=== PATIENT | female | born 2000 | race Caucasian/White ===

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

== ENCOUNTER 2021-06-06 14:49 | Emergency (ER) | payer OTHER, MEDICAID, SELFPAY ==
--- NOTE | ~2021-06-06 | XR_ITS ---
XR ankle RT min 3V DATE: 06/06/2021 15:33 INDICATION: Lawnmower accident TECHNIQUE: 4 views COMPARISON: None FINDINGS: No fracture or dislocation of the ankle or disruption of the ankle mortise is detected. No periosteal reaction or bone destruction. IMPRESSION: Negative Reviewed, dictated and finalized at location A. IMPRESSION: Negative
--- NOTE | ~2021-06-06 | XR_ITS ---
EXAMINATION: XR tibia fibula RT 2V DATE: 06/06/2021 15:33 INDICATION: Pain at the right tibia/fibula after lawnmower accident TECHNIQUE: AP and lateral views of the right lower leg were obtained. COMPARISON: None. FINDINGS: Arcuate sign with a minimally displaced transverse fracture across the cephalad tip of the proximal r ight fibula tip likely resulting from an avulsion fracture of the arcuate ligament complex. Bone alig nment is otherwise normal. No other fractures identified. Joint spaces appear normal. No evident righ t knee or ankle joint effusion. IMPRESSION: 1. Small minimally displaced likely arcuate ligament complex avulsion fracture fragment across the ce phalad tip of the proximal right fibula. This injury pattern can have a high association with additio nal occult internal derangement including cruciate ligament and meniscal tears although there does no t appear to be a significant right knee joint effusion to further elevate suspicion. Correlate with p hysical exam and if there is clinical concern for internal derangement would recommend MRI for furthe r evaluation. Reviewed, dictated and finalized at location A. IMPRESSION: 1. Small minimally displaced likely arcuate ligament complex avulsion fracture fragment across the cephalad tip of the proximal right fibula. This injury wander lorena can have a high association with additional occult internal derangement inc luding cruciate ligament and meniscal tears although there does not appear to b e a significant right knee joint effusion to further elevate suspicion. Correla te with physical exam and if there is clinical concern for internal derangement would recommend MRI for further evaluation.
--- NOTE | ~2021-06-06 | XR_ITS ---
XR wrist RT min 3V DATE: 06/06/2021 15:33 INDICATION: Fall. Right wrist injury, pain TECHNIQUE: 4 views COMPARISON: None FINDINGS: There is a nondisplaced transverse fracture of the waist of the navicular bone. This places the proximal aspect of the navicular bone at the risk of avascular necrosis. No other fracture or dislocation. No periosteal reaction or bone destruction. IMPRESSION: Nondisplaced transverse fracture of the waist of the navicular bone Reviewed, dictated and finalized at location A.
[2021-06-06 15:07] VITALS: BP 127/73; PULSE 85; RESP 18; TEMP 36.4; O2SAT 100
--- NOTE | 2021-06-06 16:05 | ED.LOWEXIN ---
HPI - Extremity Injury (Lower) General Chief Complaint: Extremity Injury, Lower Stated Complaint: leg injury Time Seen by Provider: 06/06/21 15:34 History of Present Illness HPI Narrative: 20-year-old female presents to the emergency room for evaluation of injuries to the right ankle, right knee, right wrist following lawnmower accident. Patient states that she was standing in a stand-up lawnmower when she lost control, fell off the lawn more, and a little more ran over her leg . Patient attempted to catch her self with her right wrist causing a FOOSH injury. Patient states that she is not ambulatory following the injury. Related Data Home Medications Medication Instructions Recorded Confirmed PNV cmb#95-ferrous fumarate-FA 1 tablet PO DAILY 10/30/20 12/17/20 [] ergocalciferol (vitamin D2) 50,000 unit PO 2XW 10/30/20 12/17/20 [Vitamin D2] ferrous sulfate 325 mg PO DAILY 10/30/20 12/17/20 sertraline 50 mg PO DAILY 12/07/20 12/17/20 Allergies Allergy/AdvReac Type Severity Reaction Status Date / Time No Known Allergies Allergy Unknown Verified 06/06/21 16:40 Review of Systems Review of Systems: CONSTITUTIONAL: Denies fever, chills, or sweats. EYES: Denies visual changes, redness, or discharge. ENT: Denies rhinorrhea, congestion, sore throat, or otalgia. CARDIOVASCULAR: Denies chest pain, palpitations, or edema. RESPIRATORY: Denies cough or dyspnea. GASTROINTESTINAL: Denies abdominal pain, nausea, vomiting, or diarrhea. GENITOURINARY: Denies dysuria or hematuria. SKIN: Denies rash or itching. MUSCULOSKELETAL: Reports right wrist pain, right ankle pain, right knee pain NEUROLOGIC: Denies headache, numbness, dizziness, or weakness. PSYCHIATRIC: Denies anxiety or depression. [facility] Past Medical History Medical History Decreased movement Depression False labor Intrauterine Obesity (BMI 30-39.9) Surgical History Surgical History No significant past surgical history Family History Family History Other No pertinent family history Social History Social History Smoking status: Never smoker Second hand tobacco smoke exposure: Yes Alcohol intake: current Alcohol use details: intermittent Substance use: former Substance use type: marijuana Spiritual care concerns: No Exam Narrative: GENERAL: Well-appearing, well-nourished, and in no acute distress. HEAD: Normocephalic, atraumatic. EYES: PERRLA and EOMI. NECK: Supple. No adenopathy or masses. No carotid bruits or JVD CHEST: Clear to auscultation. No respiratory distress. No wheezes rales or rhonchi HEART: Regular rate and rhythm. No murmur heard. Normal peripheral pulses. ABDOMEN: Soft, nontender, nondistended, normal active bowel sounds. EXTREMITIES: Right wrist: Snuffbox tenderness, soft tissue swelling over the radiocarpal joint, pain with range of motion, no ecchymosis, neurovascular is intact distally. Right knee: Ecchymosis and tenderness to the popliteal fossa, no joint laxity noted. Pain with varus and valgus movements. Right lower extremity: Tenderness and ecchymosis anterior moore; right ankle: Tenderness and soft tissue swelling to the lateral malleolus, no joint laxity, no bony abnormality, there is intact distal SKIN: Warm, dry, no rash. NEURO: No focal deficits. Alert and oriented x3. PSYCH: Normal mood and affect. Course Vital Signs Vital signs: Vital Signs Temperature 36.4 C 06/06/21 15:07 Pulse Rate 85 06/06/21 15:07 Respiratory Rate 18 06/06/21 15:07 Blood Pressure 127/73 06/06/21 15:07 Pulse Oximetry 100 06/06/21 15:07 Temperature 36.4 C 06/06/21 15:07 Pulse Rate 85 06/06/21 15:07 Respiratory Rate 18 06/06/21 15:07 Blood Pressure 127/73 04
== END 2021-06-06 17:06 | disposition home or self-care (01) ==
PROVIDERS: Emergency Provider Nurse Practitioner Family; PCP Physician Assistant
DX: S62.024A Nondisplaced fracture of middle third of navicular [scaphoid] bone of right wrist, initial encounter for closed fracture (principal); S82.831A Other fracture of upper and lower end of right fibula, initial encounter for closed fracture; S90.01XA Contusion of right ankle, initial encounter; F32.A Depression, unspecified; E66.9 Obesity, unspecified; Z77.22 Contact with and (suspected) exposure to environmental tobacco smoke (acute) (chronic); W28.XXXA Contact with powered lawn mower, initial encounter
CPT/HCPCS: 29125; 73110; 73590; 73610; 99284

== ENCOUNTER 2022-11-26 13:11 | Outpatient (CLI) | payer BC, OTHER, SELFPAY ==
--- NOTE | ~2022-11-26 | XR_ITS ---
EXAMINATION: XR lumbar spine 2-3V DATE: 11/26/2022 13:37 INDICATION: Right-sided low back pain TECHNIQUE: AP lateral views of the lumbar spine were obtained. COMPARISON: None. FINDINGS: Bone alignment is normal. There is no fracture. The vertebral body heights and intervertebr al disc spaces are normal. Left pelvic calcifications likely reflect phleboliths. IMPRESSION: 1. No acute osseous abnormality. Reviewed, dictated and finalized at location F.
== END 2022-11-26 13:12 | disposition home or self-care (01) ==
DX: M54.41 Lumbago with sciatica, right side (principal)
CPT/HCPCS: 72100

== ENCOUNTER 2023-07-10 09:59 | Emergency (ER) | payer BC, OTHER, SELFPAY ==
--- NOTE | 2023-07-10 12:30 | ED.EYEPROB ---
HPI - Eye Problem General Chief complaint: Eye Problems Stated complaint: r/o pink eye Time Seen by Provider: 07/10/23 11:49 Source: patient Mode of arrival: ambulatory Limitations: no limitations History of Present Illness HPI Narrative: Patient presents with concern for pink eye. Multiple family members have allergies but she denies any significant personal history. Denies sneezing. Recently had an upper respiratory infection with congestion. Denies blurred or double vision. Noticed one eye was red/injected on and both today. Sent a photo to PCP Dr Marlon Rajput's office in [place]. She was later notified they didn't receive it and when she re-sent it 5 minutes later, was informed the office was closed. Has an intermittent foreign body sensation. Eye(s) is/are itchy. No photophobia. Had green discharge in the corner of one eye. No other family members with symptoms. Used eye drops which helped. Does not wear contact lenses. Had trialed warm compresses. Noticed crusting of one eye this morning when she awoke. Related Data Home Medications Medication Instructions Recorded Confirmed ergocalciferol (vitamin D2) 1,250 50,000 unit PO 2XW 10/30/20 08/13/21 mcg (50,000 unit) capsule (Vitamin D2) ferrous sulfate 325 mg (65 mg 325 mg PO DAILY 10/30/20 08/13/21 iron) tablet vit no.95-ferrous 1 tablet PO DAILY 10/30/20 08/13/21 fumarate 28 mg-folic acid 800 mcg tablet () sertraline 50 mg tablet 50 mg PO DAILY 12/07/20 08/13/21 Allergies Allergy/AdvReac Type Severity Reaction Status Date / Time No Known Allergies Allergy Unknown Verified 07/10/23 10:02 [facility] Past Medical History Medical History (Updated 07/12/23 @ 04:03 by Sanam Fernandes MD) Anxiety Closed right fibular fracture 06/06/21 Decreased movement Depression False labor Fracture of scaphoid of right wrist Intrauterine Obesity (BMI 30-39.9) Right knee sprain Surgical History Surgical History No significant past surgical history Family History Family History Other Allergies Depression Heart disease Social History Social History (Updated 07/12/23 @ 03:56 by Sanam Fernandes MD) Smoking status: Never smoker Second hand tobacco smoke exposure: Yes Alcohol intake: current Alcohol use details: intermittent Substance use: former Substance use type: marijuana Living arrangements: with family Additional living arrangements comments: mother, sister, son Occupation/Education: occupation 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 HEAD: Normocephalic, atraumatic. EYES: non icteric; mild photophobia by report (does not require dim lights). Mildly injected though limbus spared. ENT: Nares clear, no rhinorrhea or epistaxis. NECK: Supple. CHEST: Speaking in full sentences. No respiratory distress. HEART: Regular rate and rhythm. . ABDOMEN: Soft, nondistended. EXTREMITIES: Normal range of motion. No edema. SKIN: Warm, dry, no rash. NEURO: No focal deficits. Alert and oriented x3. PSYCH: Normal mood and affect. Course Vital Signs Vital signs: Vital Signs Temperature 97.6 F 07/10/23 12:57 Pulse Rate 82 07/10/23 12:57 Respiratory Rate 18 07/10/23 12:57 Blood Pressure 137/72 07/10/23 12:57 Pulse Oximetry 100 07/10/23 12:57 Temperature 97.6 F 07/10/23 12:57 Pulse Rate 82 07/10/23 12:57 Respiratory Rate 18 07/10/23 12:57 Blood Pressure 137/72 07/10/23 12:57 Pulse Oximetry 100 07/10/23 12:57 MDM - Eye Problem MDM
[2023-07-10] MEDS: ERYTHROMYCIN OPHTH OINTMENT 1 GM TUBE 1 APPLIC EACH EYE (12:50)
[2023-07-10] MEDS: LORATADINE 10 MG TABLET PO (12:50)
[2023-07-10 12:57] VITALS: BP 137/72; PULSE 82; RESP 18; TEMP 36.4; O2SAT 100
== END 2023-07-10 12:59 | disposition home or self-care (01) ==
PROVIDERS: Emergency Provider Student in an Organized Health Care Education/Training Program
DX: H10.9 Unspecified conjunctivitis (principal); F41.9 Anxiety disorder, unspecified; F32.A Depression, unspecified
CPT/HCPCS: 99283; A9270

== ENCOUNTER 2023-09-01 11:19 | Emergency (ER) | payer BC, OTHER, SELFPAY ==
[2023-09-01 11:20] VITALS: BP 129/88; PULSE 84; RESP 16; TEMP 36.6; O2SAT 100
[2023-09-01] MEDS: diphenhydrAMINE HCl CAP 25 MG CAPSULE PO (13:35)
[2023-09-01] MEDS: PROCHLORPERAZINE MALEATE 5 MG TABLET 10 MG PO (13:35)
--- NOTE | 2023-09-01 13:59 | ED.HEATRA ---
HPI - Head Injury General Chief complaint: Head Injury Stated complaint: head injury Time Seen by Provider: 09/01/23 12:58 History of Present Illness HPI Narrative: This is a 22-year-old otherwise healthy female who presents to the emergency department for evaluation after a closed head injury. She states she was playing with her son when her son accidentally bumped her head with his sed yesterday night. Patient did not lose consciousness he did not fall to the ground. She has no history of blood thinner use or seizure disorder. She states that immediately after the insult she had some brief fluttering of her left eye vision which resolved spontaneously. She has been having headache on that side since and this morning while she was at work she noted that she still had the headache and wanted evaluated the ED. She had no visual deficits or other concerns with nausea, vomiting, claudication, spinal pain, photophobia. She was otherwise in her normal state of health. She states she has a history of closed head injuries with concussions in the past without any intracranial pathology. Denies any chance of . Related Data Home Medications Medication Instructions Recorded Confirmed ergocalciferol (vitamin D2) 1,250 50,000 unit PO 2XW 10/30/20 08/13/21 mcg (50,000 unit) capsule (Vitamin D2) ferrous sulfate 325 mg (65 mg 325 mg PO DAILY 10/30/20 08/13/21 iron) tablet vit no.95-ferrous 1 tablet PO DAILY 10/30/20 08/13/21 fumarate 28 mg-folic acid 800 mcg tablet () sertraline 50 mg tablet 50 mg PO DAILY 12/07/20 08/13/21 Allergies Allergy/AdvReac Type Severity Reaction Status Date / Time No Known Allergies Allergy Unknown Verified 07/10/23 10:02 Review of Systems Review of Systems: CONSTITUTIONAL: Denies fever, chills, or sweats. EYES: Denies new visual changes, redness, or discharge. ENT: Denies rhinorrhea, congestion, sore throat, or otalgia. CARDIOVASCULAR: Denies chest pain, palpitations, or edema. RESPIRATORY: Denies cough or dyspnea. GASTROINTESTINAL: Denies abdominal pain, nausea, vomiting, or diarrhea. GENITOURINARY: Denies dysuria or hematuria. SKIN: Denies rash or itching. MUSCULOSKELETAL: Denies back pain, joint pain, or myalgia. NEUROLOGIC: Denies numbness, or weakness. PSYCHIATRIC: Denies anxiety or depression. [facility] Past Medical History Medical History Anxiety Closed right fibular fracture 06/06/21 Decreased movement Depression False labor Fracture of scaphoid of right wrist Intrauterine Obesity (BMI 30-39.9) Right knee sprain Surgical History Surgical History No significant past surgical history Family History Family History Other Allergies Depression Heart disease Social History Social History Smoking status: Never smoker Second hand tobacco smoke exposure: Yes Alcohol intake: current Alcohol use details: intermittent Substance use: former Substance use type: marijuana Living arrangements: with family Additional living arrangements comments: mother, sister, son Occupation/Education: occupation 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 ENT: Nares clear, no rhinorrhea or epistaxis. Mucous membranes moist. No tenderness over the maxillary facial structures. NECK: Supple. No cervi
== END 2023-09-01 14:16 | disposition home or self-care (01) ==
PROVIDERS: Emergency Provider Student in an Organized Health Care Education/Training Program
DX: S06.0X0A Concussion without loss of consciousness, initial encounter (principal); E66.9 Obesity, unspecified; Z68.27 Body mass index [BMI] 27.0-27.9, adult; F41.9 Anxiety disorder, unspecified; F32.A Depression, unspecified; Z79.899 Other long term (current) drug therapy; W51.XXXA Accidental striking against or bumped into by another person, initial encounter
CPT/HCPCS: 99283; A9270

== ENCOUNTER 2024-02-17 09:37 | Outpatient (CLI) | payer BC, SELFPAY ==
--- NOTE | ~2024-02-17 | US_ITS ---
EXAM: ABDOMEN ULTRASOUND HISTORY: RIGHT SIDE ABDOMINAL PAIN COMPARISON: None FINDINGS: LIVER: The liver is unremarkable in echogenicity and size measuring 14 cm in longitudinal dimension. The portal vein demonstrates hepatopedal flow. GALLBLADDER: Multiple stones are identified dependently within the gallbladder, which is otherwise un remarkable. No gallbladder wall thickening or pericholecystic fluid. BILE DUCTS: Common bile duct measures 1.7mm. PANCREAS: Limited evaluation of the pancreas secondary to overlying bowel gas RIGHT KIDNEY: 10.5 cm. In length. No hydronephrosis or bulky renal calculi. VASCULATURE : The abdominal aorta is nonaneurysmal. The IVC is patent. IMPRESSION: Cholelithiasis, without ultrasound evidence of cholecystitis. Reviewed, dictated and finalized at location A. 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
== END 2024-02-17 09:38 | disposition home or self-care (01) ==
PROVIDERS: PCP Family Medicine; Visit Provider Family Medicine
DX: K80.20 Calculus of gallbladder without cholecystitis without obstruction (principal)
CPT/HCPCS: 76705

== ENCOUNTER 2024-05-30 12:47 | Outpatient (CLI) | payer BC, SELFPAY ==
[2024-05-30 13:30] LABS: Alanine Aminotransferase 24 U/L (6-35); Albumin Level 4.5 g/dL (3.5-5.1); Alkaline Phosphatase 50 U/L (38-126); Amylase 71 U/L (30-110); Aspartate Amino Transferase 21 U/L (14-36); Bilirubin,Total 0.1 mg/dL (0.2-1.3); Lipase 157 U/L (23-300)
--- OUTSIDE RECORDS SUMMARY | 2024-05-30 14:28 | XMS_ITS | Clinical Summary ---
Author Organization [facility] Address [address] [place] [id number] Care Team Providers Care Tax Staff Accountant Name Role Phone Unavailable Primary Care Provider Unavailabl e Encounters Date Type Department Care Team Description 05/29/2024 Hospital Encounter [facility] Day [facility] [place] [address] Merrill Acharya MD from Last 3 Months Social History Tobacco Use Types Packs/Day Years Used Date Smoking Tobacco: Never Assessed Comments Unknown Sex and Gender Information Value Date Recorded Sex Assigned at Not on file 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 Gender Identity Not on file Sexual Orientation Not on file Plan of Treatment Health Maintenance Due Date Last Done Comments Cervical Cancer Screening Pa p Smear (Age 21 to 29) Every 3 Years 2001 Cervical Cancer Screening 2001 Annual Physical 2004 HPV Vaccines (1 - 3-dose series) 2016 Meningococcal B Vaccine (1 o f 2 - Standard) 2017 Hepatitis C 11/27/2019 DTaP, Tdap and Td Vaccines ( 1 - Tdap) 2020 Hepatitis B Vaccines (1 of 3 - 19+ 3-dose series) 2020 COVID-19 Vaccine ( - 2023-2 5 season) 2023 Meningococcal Vaccine Aged Out No rowan javon eligible based on patient's age to complete this topic Pneumococcal Vaccine: Pediat rics (0 to 5 Years) and At-Risk Patients (6 to 49 Years) Aged Out No longer eligible b ased on patient's age to complete this topic RSV Immunizations Under 20 Months Aged Out No longer eligible based on patient's age to complete this topic
--- OUTSIDE RECORDS SUMMARY | 2024-05-30 14:28 | XMS_ITS | Encounter Summary ---
Author Organization [facility] Address [address] [place] [id number] Care Team Providers Care Photographic Artist Name Role Phone Unavailable Primary Care Provider Unavailabl e Encounter Details Date Type Department Care Team (Late st Contact Info) Description 05/29/2024 Hospital Encounter [facility] One Day Services [place], [place] [id number] Merrill Acharya MD [address] [place] [address], [address] [place] [id number] Social History Tobacco Use Types Packs/Day Years Used Date Smoking Tobacco: Never Assessed Comments Unknown Sex and Gender Information Value Date Recorded Sex Assigned at Not on file 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
--- OUTSIDE RECORDS SUMMARY | 2024-05-30 14:28 | XMS_ITS | Clinical Summary ---
Author Organization [place] [id number] [facility] Address Count includes the [facility] [place] [address] Care Team Providers Care Occupational Health Rn Name Role Phone Mary Blancas MD Primary Care Provide r Allergies No known active allergies Medications No known medications Active Problems Problem Noted Date Diagnosed Date Migraine 04/20/2024 Chronic low back pain 04/19/2024 BMI 34.0-34.9,adult 09/26/2020 Assessment & Plan (09/26/2020 7:26 AM CDT): Obesity is unchanged. Discussed the patient's BMI. The BMI is above average. BMI management plan is completed. BMI Follow-up includes: nutrition counseling, exercise counseling and education provided. Obesity (BMI 30-39.9) 09/11/2020 Assessment & Plan (09/26/2020 7:26 AM CDT): Obesity is unchanged. Discussed the patient's BMI. The BMI is above average. BMI management plan is completed. BMI Follow-up includes: nutrition counseling, exercise counseling and education provided. Assessment & Plan (09/11/2020 1:36 PM CDT): Obesity is unchanged. Discussed the patient's BMI. The BMI is above average. BMI management plan is completed. BMI Follow-up includes: nutrition counseling, exercise counseling and education provided. Dermatitis 09/11/2020 Assessment & Plan (09/26/2020 9:00 AM CDT): Will increase potency of steroid, jean bid x 7 days. Advised to f/u in next week if not improving, sooner if worsening. We discussed antifungals aren't indicated in , will attempt to avoid these if possible until delivery. Assessment & Plan (09/11/2020 6:40 PM CDT): We reviewed up to date guidelines due to - will use low potency topical steroid bid x 5 days. Advised f/u in 5-7d if not improving, sooner if worsening. Cigarette smoker 04/03/2020 Pharyngitis 04/03/2020 Assessment & Plan (10/14/2021 8:34 AM CDT): Patient declines strep/poc test through urgent care at this time. She was advised to continue with tylenol q6h and warm salt water gargles tid. She was advised to report to office/urgent care over the next 72h if symptoms are not improving. We discussed ent referral if having repeated episodes of documented strep pharyngitis. Assessment & Plan (04/03/2020 7:51 AM SULFIDE HEAD OPERATOR): Will send patient to [place] for Covid-19 testing. The patient was advised to quarantine at least 10 days from symptom onset, but this determination will depend on result of testing. They were advised to contact us in the next 72h if they have not heard results of testing. They were advised to report to the ER if worsening. She was advised to start tylenol q6h prn fever/pain. Episode of recurrent major depressive disorder 1 Assessment & Plan (11/16/2019 2:43 PM CDT): Will continue to work with psychiatrist and psychologist. Tetrahydrocannabinol (THC) use disorder, mild, a buse 11/16/2019 Assessment & Plan (11/16/2019 2:44 PM CDT): Advised her to stop smoking thc Resolved Problems Problem Noted Date Diagnosed Date Resolved Date BMI 33.0-33.9,adult 09/11/2020 09/27/19 21 Assessment & Plan (09/11/2020 1:37 PM CDT): Obesity is unchanged. Discussed the patient's BMI. The BMI is above average. BMI management plan is completed. BMI Follow-up includes: nutrition counseling, exercise counseling and education provided. 25 weeks gestation of 09/11/2020 10/14/2021 Assessment & Plan (09/11/2020 6:39 PM CDT): Continue with care per cable splicer assistant Encounter to establish care 11/16/2019 10/14/2021 Assessment & Plan (11/16/2019 2:43 PM CDT): retrieve records from barn manager, including immunizations Flu vaccine need 11/16/2019 10/14/2021 Assessment & Plan (11/16/2019 2:43 PM CDT): Flu shot today control counseling 11/16/201907/2021 Assessment & Plan (11/16/2019 2:43 PM CDT): Patient advised to not smoke as smoking when taking ocp can increase risk for blood clots. Patient advised to take ocp at same time each day and start ocp the day after menses finishes. Patient reminded to use back up prevention the first two months after starting ocp. Patient reminded that ocp does not prevent against STDs. Patient reminded that if taking other medications, such as antibiotics or medications for anxiety or depression, could interact with ocp and increase risk for . Encounters Date Type Department Care Team Description 04/21/2024 Results Follow-Up [facility] [address] [place] [address] 8 [place] [address] Yeni Rust NP 04/20/2024 12:00 PM CDT Lab [facility] - Lab Collection [address] [place] [address] 5 [place] [address] Bilateral nipple discharge 04/20/2024 10:45 AM CDT - 04/20/2024 11:59 PM CDT Hospital Encounter [facility] - Breast Imaging [address] [place] [address] 8 [place] [address] Nipple discharge Discharge Disposition: Discharge to home or self care 04/20/2024 10:00 AM CDT Office Visit [facility] [address] [facility] Floor 8 [place] [address] Yeni Rust NP Bilateral nipple discharge (Primary Dx) 03/09/2024 Telephone [facility] [address] [facility] Floor 8 [place] [address] Yeni Ruts NP Medical Question/Miscellaneo us from Last 3 Months Immunizations Immunization Administration Dates Next Due DTaP 11/27/2005, 5,06/03/2002,03/25,01/30/2002 HPV9 04/02/2016,05/01/2015 Hep B, Adolescent or Pediatric 09/09/2002,2001,2001 HiB 06/03/2002,03/25/2002,01/30/2002 Hib (PRP-OMP) 02/14/2004, 3,03/25/2002,01/30 IPV 11/27/2005, 3,01/30/2002,12/01 Influenza, Quadrivalent, Spl it, Intramuscular 11/23/2022,05/01/2015 Influenza, Quadrivalent, Spl it, Preservative Free, Intramuscular 11/16/2019,10/29/2018,11/15/2017,10/26,04/02/2016 Influenza, Trivalent, IM (MDV) 11/08/2022 Influenza, Trivalent, Preser vative Free, Intramuscular 12/23/2011 MMR 11/27/2005,12/01/2002 Meningococcal MCV4P (Menactra) 11/16/2019,2015 Pneumococcal Conjugate 7-Valent 02/13/19 05,06/03/2002,03/25/2002,01/30 Tdap 05/01/2015 Varicella 05/19/2007,12/01/2002 Surgical History Surgery Date Site/Laterality Comments WISDOM TOOTH EXTRACTION 02/08/2022 - 02/07/2023 Medical History Medical History Date Comments Depression Anxiety Family History Medical History Relation Name Comments Depression Father Heart disease Father Hyperlipidemia Father Leukemia Maternal Grandmother Depression Mother Relation Name Status Comments Father Alive Maternal Grandmother Mother Alive Social History Tobacco Use Types Packs/Day Years Used Date Smoking Tobacco: Former Smokeless Tobacco: Never Alcohol Use Standard Drinks/Week Comments Never 0 (1 standard drink = 0.6 oz pur e alcohol) AUDIT-C Answer Date Recorded Q1: How often do you have a drink containing alc ohol? Never 11/16/2019 Average Number of Drinks Not on file 020 Frequency of Binge Drinking Not on file 09/2019 PHQ-2 Answer Date Recorded PHQ-2 Total Score (If total score is 3 or more points, staff should administer the PHQ-9) 0 09/26/2020 Comments Unknown Sex and Gender Information Value Date Recorded Sex Assigned at Not on file Legal Sex Female 7:17 PM SULFIDE HEAD OPERATOR Gender Identity Female 04/21/2024 6:21 AM CDT Sexual Orientation Straight 04/21/2024 6: 21 AM CDT Obstetrics History Last Filed Vital Signs Vital Sign Reading Time Taken Comments Blood Pressure 125/85 04/20/2024 10:13 AM CDT Pulse 86 04/20/2024 10:13 AM CDT Temperature 36.7 C (98.1 F) 09/26/2020 7:24 AM CDT Respiratory Rate 20 04/20/2024 10:13 AM CDT Oxygen Saturation 98% 04/20/2024 10:13 AM CDT Inhaled Oxygen Concentration - - Weight 81.7 kg (180 lb 1.6 oz) 04/20/2024 10:13 AM CDT Height 167.5 cm (5' 5.95 ) 04/20/2024 10:13 AM C DT Body Mass Index 29.12 04/20/2024 10:13 AM CDT Plan of Treatment Health Maintenance Due Date Last Done Comments Cervical Cancer Screening 2001 Hepatitis C Screening 2001 Meningococcal B Vaccine (1 o f 2 - Standard) 2017 Regular Well Visit/Exam 18-64 11/27/2019 Depression Screening 09/26/2021 09/26/2020, 09/11/2020, 04/03/2020, Additional history exists Influenza Vaccine (#1) 2023 3, 11/08/2022, 11/16/2019, Additional history exists DTaP/Tdap/Td Vaccine (7 - Td or Tdap) 04/30/2025 05/01/2015, 11/27/2005, 02/14/2004, Additional history exists Hepatitis B Screening Completed 09/09/2002 , 2001, 2001 Pneumococcal vaccine <65 Completed 005, 06/03/2002, 03/25/2002, Additional history exists Varicella Vaccines Completed 05/19/2007, 12/01/2002 HPV Vaccines Completed 04/02/2016, 05/01/2015 Procedures Procedure Name Priority Date/Time Associated Diagnosis Comments THYROID FUNCTION CASCADE Routine 04/20/2024 11:59 AM CDT Bilateral nipple discharge US BREAST BILATERAL LIMITED Schedule Routine, Read Routine (OP Routine) 04/20/2024 11:35 AM CDT Nipple discharge from Last 3 Months Results * Thyroid Function [place] (04/20/2024 11:59 AM CDT) TSH 0.98 0.30 - 4.20 mcIUnit/mL Blood 04/20/2024 11:5 9 AM CDT 04/20/2024 12:06 PM CDT Yeni Rust DIRECTOR CONSUMER AFFAIRS LAB BLOOD ORDERABLES nal Result [facility] Department [place] [address] * US Breast Bilateral Limited (04/20/2024 11:35 AM CDT) Anatomical Region Laterality Modality Breast Bilateral Ultrasound 04/20/2024 11:4 5 AM CDT Impressions 04/20/2024 11:45 AM CDT No sonographic evidence to explain the patient's bilateral nipple discharge. OVERALL FINAL ASSESSMENT: BI-RADS Category 1: Negative. RECOMMENDATION: Continued clinical follow-up is recommended with possible further lab testing with prolactin levels. Unless earlier screening is clinically indicated, recommend annual screening mammography beginning at 40 years of age. Electronically signed by: Luna Paredes M.D. Narrative 04/20/2024 11:45 AM CDT EXAMINATION: BILATERAL BREAST ULTRASOUND HISTORY: 23-year-old woman who presents with bilateral spontaneous and nonspontaneous white nipple discharge for the past 3 years after breast-feeding. COMPARISON: None available. TECHNIQUE: Directed ultrasound evaluation of BOTH breasts was performed. ULTRASOUND FINDINGS: Targeted sonographic images in the bilateral subareolar breast demonstrate benign-appearing ducts with no intraductal mass. There is no suspicious cystic or solid mass noted within the bilateral subareolar areas. Procedure Note Luna Paredes MD - 04/20/2024 EXAMINATION: BILATERAL BREAST ULTRASOUND HISTORY: 23-year-old woman who presents with bilateral spontaneous and nonspontaneous white nipple discharge for the past 3 years after breast-feeding. COMPARISON: None available. TECHNIQUE: Directed ultrasound evaluation of BOTH breasts was performed. ULTRASOUND FINDINGS: Targeted sonographic images in the bilateral subareolar breast demonstrate benign-appearing ducts with no intraductal mass. There is no suspicious cystic or solid mass noted within the bilateral subareolar areas. IMPRESSION: No sonographic evidence to explain the patient's bilateral nipple discharge. OVERALL FINAL ASSESSMENT: BI-RADS Category 1: Negative. RECOMMENDATION: Continued clinical follow-up is recommended with possible further lab testing with prolactin levels. Unless earlier screening is clinically indicated, recommend annual screening mammography beginning at 40 years of age. Electronically signed by: Luna Paredes M.D. Yeni Rust DIRECTOR CONSUMER AFFAIRS IMG MAMMO PROCEDURES Fi nal Result from Last 3 Months Insurance CHOICE PLUS [facility] HMO/PPO Address: [address] [address] [place] [address] ANTHEM ACCESS CHOICE ANTHEM ACCESS CHOICE ANTH ACCESS CHOICE Member Subscriber Plan / Payer (Ef fective 2022-Present) Name:Deborah Soriano Relation to Subscriber:Child Name:Deborah Soriano Date of :1982 (Home) (Work) Address: [address] [place] [address] Payer ID:[id number] (NAIC) Type:BC ALLIANCE Address: [facility] [id number] [place] [id number] Care Teams Occupational Health Rn Relationship Specialty Start Date End Date Mary Blancas MD [address] [id number] PCP - General Internal Medicine 04/20/24
--- OUTSIDE RECORDS SUMMARY | 2024-05-30 14:28 | XMS_ITS | Referral Summary ---
Author Organization [place] [id number] [facility] Address [address] [place] [address] Care Team Providers Care Plate Corrector Name Role Phone Mary Blancas MD Primary Care Provide r Encounters Date Type Department Care Team Description 04/21/2024 Results Follow-Up [facility] [address] [place] [address] 8 [place] [address] Yeni Rust NP 04/20/2024 12:00 PM CDT Lab [facility] - Lab Collection [address] [facility] Floor 5 [place] [address] Bilateral nipple discharge 04/20/2024 10:45 AM CDT - 04/20/2024 11:59 PM CDT Hospital Encounter [facility] - Breast Imaging [address] [facility] Floor 8 [place] [address] Nipple discharge Discharge Disposition: Discharge to home or self care 04/20/2024 10:00 AM CDT Office Visit [facility] [address] [place] [address] Floor 8 [place] [phone] Yeni Rust NP Bilateral nipple discharge (Primary Dx) 03/09/2024 Telephone [facility] [address] [place] [address] 8 [place] [address] Yeni Rust NP Medical Question/Miscellaneo us from Last 3 Months Allergies No known active allergies Medications No [...] pharyngitis. Assessment & Plan (04/03/2020 7:51 AM WRAPPER SORTER): Will send patient to [place] for Covid-19 testing. The patient was advised [...] 6:39 PM CDT): Continue with care per shorthand reporter Encounter to establish care 11/16/2019 10/14/2021 Assessment & Plan (11/16/2019 2:43 PM CDT): retrieve records from manufacturing operator, including immunizations Flu vaccine need 11/16/2019 10/14/2021 [...] with ocp and increase risk for . Immunizations Immunization Administration Dates Next Due DTaP [...] 7-Valent 02/13/19 05,06/03/2002,03/25/2002,01/30 Tdap 05/01/2015 Varicella 05/19/2007,12/01/2002 Social History Tobacco Use Types Packs/Day Years [...] on file Legal Sex Female 7:17 PM WRAPPER SORTER Gender Identity Female 04/21/2024 6:21 AM CDT Sexual Orientation Straight 04/21/2024 6: 21 AM CDT Last Filed Vital Signs Vital Sign Reading [...] 04/20/2024 10:13 AM CDT Plan of Treatment Not on file Procedures Procedure Name Priority Date/Time Associated Diagnosis Comments THYROID FUNCTION CASCADE Routine 04/20/2024 11:59 AM CDT Bilateral nipple discharge US BREAST BILATERAL LIMITED Schedule Routine, Read Routine (OP Routine) 04/20/2024 11:35 AM CDT Nipple discharge from Last 3 Months Results * Thyroid Function [place] (04/20/2024 11:59 AM CDT) TSH 0.98 0.30 - 4.20 mcIUnit/mL Blood 04/20/2024 11:5 9 AM CDT 04/20/2024 12:06 PM CDT us Yeni Rust YOUTH DEVELOPMENT PROFESSIONAL LAB BLOOD ORDERABLES Fi nal Result [facility] Department [place] [address] * US Breast Bilateral Limited (04/20/2024 11:35 [...] Electronically signed by: Luna Paredes M.D. Yeni Dickson Barrera YOUTH DEVELOPMENT PROFESSIONAL IMG MAMMO PROCEDURES Fi nal Result from Last 3 Months Insurance CHOICE PLUS [id number] [place] [address] [facility] Address: [facility] [id number] [place] [address] ANTHEM ACCESS CHOICE ANTHEM ACCESS CHOICE Care Teams Plate Corrector Relationship Specialty [place] [address] [place] [address] PCP - General Internal Medicine 04/20/24
--- OUTSIDE RECORDS SUMMARY | 2024-05-30 14:28 | XMS_ITS | Clinical Summary ---
Author Organization [facility] Address [address] [facility] [address] Care Team Providers Care Cook Night Name Role Phone Morelia Gaffney PA-C Primary Care Provider + Source Comments [facility],non-owned Affiliates and Associated Physician Practices is amultiple site organization consisting of ambulatory clinics and hospital sitesin [place], [place], [place] and [place]. This disclosure is being madepursuant to the Care Everywhere program and may not contain all information available regarding this patient. Last updated 17.[facility] Social History Tobacco Use Types Packs/Day Years Used Date Smoking Tobacco: Never Assessed Comments Unknown Sex and Gender Information Value Date Recorded Sex Assigned at Not on file Legal Sex Female 8:49 AM CDT Gender Identity Not on file Sexual Orientation Not on file Plan of Treatment Health Maintenance Due Date Last Done Comments HIV SCREENING 2016 HPV VACCINE (1 - 3-dose series) 2016 CHLAMYDIA/GONORRHEA SCREENING 2017 MENINGOCOCCAL (Group B) VACC INE SHARED DECISION-MAKING (1 of 2 - Standard) 2017 HEPATITIS C SCREENING 11/22/2019 DTAP/TDAP/TD VACCINES (1 - Tdap) 2020 HEPATITIS B VACCINE (1 of 3 - 19+ 3-dose series) 2020 COVID-19 VACCINE (1 - 2023-2 5 season) 2023 DEPRESSION SCREENING 02/09/2024 INFLUENZA VACCINE (Season Ended) 2024 ZOSTER VACCINE (1 of 2) 11/27/2051 HIB VACCINE Aged Out No longer eligi ble based on patient's age to complete this topic MENINGOCOCCAL GROUPS A/C/Y/W VACCINE Aged Out No longer eligible b ased on patient's age to complete this topic PNEUMOCOCCAL VACCINE Aged Out No long er eligible based on patient's age to complete this topic Insurance MEDICAID - OUT OF STATE Care Teams Cook Night Relationship Specialty Start Date End Date Morelia Gaffney PA-C PCP - General 12/23/20
--- OUTSIDE RECORDS SUMMARY | 2024-05-30 14:28 | XMS_ITS | Encounter Summary ---
Author Organization [facility] Address [address] [place] [address] Phone Care Team Providers Care Bottler Name Role Phone Mary Blancas MD Primary Care Provide r Encounter Details Date Type Department Care Team (Late st Contact Info) Description 04/21/2024 Results Follow-Up [facility] [address] [facility] Floor 8 [place] [address] Yeni Rust, DERECK [address] [facility] [address] [place] [address] Social History Tobacco Use Types Packs/Day Years [...] on file Legal Sex Female 7:17 PM RESOLUTION ANALYST Gender Identity Female 04/21/2024 6:21 AM CDT Sexual Orientation Straight 04/21/2024 6: 21 AM CDT documented as of this encounter Plan of Treatment Not on file documented as of this encounter Visit Diagnoses Not on filedocumented in this encounter Care Teams Bottler Relationship Specialty Start Date End Date Mary Blancas MD [address] [place] [address] PCP - General Internal Medicine 04/20/24 documented as of this encounter
--- OUTSIDE RECORDS SUMMARY | 2024-05-30 14:28 | XMS_ITS | Clinical Summary ---
Author Organization [facility] Care Team Providers Care Info Analyst Name Role Phone Unavailable Primary Care Provider Unavailabl e Social History Tobacco Use Types Packs/Day Years Used Date Smoking Tobacco: Never Assessed Comments Unknown Sex and Gender Information Value Date Recorded Sex Assigned at Not on file Legal Sex Female 3:41 PM CDT Gender Identity Not on file Sexual Orientation Not on file Plan of Treatment Health Maintenance Due Date Last Done Comments Hepatitis C Virus (HCV) Screening 2001 TdaP Immunization 2001 Human Papillomavirus (HPV) Immunization (1 - 3-dose series) 2016 Meningococcal B Immunization (1 of 2 - Standard) 2017 Pap Smear 2022 Influenza Immunization (#1) 10/10/202309/2019, 12/23/2011 SARS-COV-2 Immunization ( season) 2023 Respiratory Syncytial Virus (RSV) Immunization (Adult) (1 - 1-dose 75+ series) 2076 Polio (IPV) Immunization Discontinued 003, 01/30/2002 DTaP/Tdap/Td Immunization Discontinued 2002, 03/25/2002, 01/30/2002 Pneumococcal Immunization Combined Aged Out 06/03/2002, 03/25/2002, 01/30/2002 No longer eligible based on patient's age to complete this topic Hepatitis B Immunization Completed 003, 2001, 2001 Meningococcal Immunization (ACWY) Completed 11/16/2019 Rotavirus Immunization Aged Out No lo nger eligible based on patient's age to complete this topic
== END 2024-05-30 12:48 | disposition home or self-care (01) ==
LOC: ANHSURGERY 12:55
PROVIDERS: PCP Family Medicine; Visit Provider Surgery
DX: K80.20 Calculus of gallbladder without cholecystitis without obstruction (principal)
CPT/HCPCS: 36415; 80076; 82150; 83690

== ENCOUNTER 2024-06-08 13:58 | Outpatient (CLI) | payer BC, SELFPAY ==
[2024-06-08 14:46] LABS: Hematocrit 38.1 % (37.0-47.0); Hemoglobin 12.4 g/dL (12.0-15.0); Mean Corpuscular HGB Conc 32.5 g/dl (32-36); Mean Corpuscular Hemoglobin 28.6 pg (26-34); Mean Platelet Volume 11.3 fl (7.4-10.4); Platelet Count Result 173 k/mm3 (150-375); Red Blood Count 4.33 M/mm3 (4.2-5.4); Red Cell Distribution Width 12.9 % (11.5-14.5); White Blood Count 6.6 K/mm3 (4.5-10.0)
--- OUTSIDE RECORDS SUMMARY | 2024-06-08 14:49 | XMS_ITS | Clinical Summary ---
Author Organization [facility] Address [address] [place] [address] Care Team Providers Care Registered Route Associate Name Role Phone Unavailable Primary Care Provider Unavailabl e Encounters Date Type Department Care Team Description 05/29/2024 Hospital Encounter [facility] [place] [address] Merrill Acharya MD from Last 3 Months Social History Tobacco Use Types Packs/Day Years Used Date Smoking Tobacco: Never Assessed Comments Unknown Sex and Gender Information Value Date Recorded Sex Assigned at Not on file Legal Sex Female 9:45 AM DUMP MOTORMAN Gender Identity Not on file Sexual Orientation [...]
--- OUTSIDE RECORDS SUMMARY | 2024-06-08 14:49 | XMS_ITS | Encounter Summary ---
Author Organization [facility] Address [address] [place] [address] Care Team Providers Care Supplier Manager Name Role Phone Unavailable Primary Care Provider Unavailabl e Encounter Details Date Type Department Care Team (Late st Contact Info) Description 05/29/[address] [facility] One Day Services [place], [place] [id number] Merrill Acharya MD [address] [place] [address], [address] [place] [address] Social History Tobacco Use Types Packs/Day Years Used Date Smoking Tobacco: Never Assessed Comments Unknown Sex and Gender Information Value Date Recorded Sex Assigned at Not on file Legal Sex Female 9:45 AM CHECKOUT OPERATOR Gender Identity Not on file Sexual Orientation Not on file documented as of this encounter Plan of Treatment Not on file documented as of this encounter Visit Diagnoses Not on filedocumented in this encounter
--- OUTSIDE RECORDS SUMMARY | 2024-06-08 14:49 | XMS_ITS | Clinical Summary ---
Author Organization [place] [address] [facility] Address [facility] [place] [address] Care Team Providers Care Caster Investment Casting Name Role Phone Mary Blancas MD Primary [...] pharyngitis. Assessment & Plan (04/03/2020 7:51 AM DITCH TENDER): Will send patient to [place] for Covid-19 testing. The patient was advised [...] 6:39 PM CDT): Continue with care per bingo caller Encounter to establish care 11/16/2019 10/14/2021 Assessment & Plan (11/16/2019 2:43 PM CDT): retrieve records from literacy tutor, including immunizations Flu vaccine need 11/16/2019 10/14/2021 [...] Department Care Team Description 04/21/2024 Results Follow-Up [facility] Surgery [address] [place] [address] 8 [place] [address] Yeni Rust NP 04/20/2024 12:00 PM CDT Lab [facility] - Lab Collection [address] [place] [address] 5 [place] [address] Bilateral nipple discharge 04/20/2024 10:45 AM CDT - 04/20/2024 11:59 PM CDT Hospital Encounter [facility] - Breast Imaging [address] [place] [address] 8 [place] [address] Nipple discharge Discharge Disposition: Discharge to home or self care 04/20/2024 10:00 AM CDT Office Visit [facility] Surgery [facility] [place] Floor 8 [place] [address] Yeni Rust, DERECK Bilateral nipple discharge (Primary Dx) from Last 3 Months Immunizations Immunization Administration [...] on file Legal Sex Female 7:17 PM DITCH TENDER Gender Identity Female 04/21/2024 6:21 AM CDT [...] Last 3 Months Results * Thyroid Function [place] (04/20/2024 11:59 AM CDT) TSH 0.98 0.30 - 4.20 mcIUnit/mL Blood 04/20/2024 11:5 9 AM CDT 04/20/2024 12:06 PM CDT us Yeni Rust NP LAB BLOOD ORDERABLES Fi nal Result [facility] One [facility] Department of Laboratories [place], [place] [id number] * US Breast Bilateral Limited (04/20/2024 11:35 [...] signed by: Luna Paredes M.D. Yeni Rust NP IMG MAMMO PROCEDURES Fi nal Result from Last 3 Months [place] [address] ANTHEM ACCESS CHOICE ANTHEM ACCESS CHOICE ANTHEM ACCESS CHOICE Care Teams Caster Investment Casting Relationship Specialty Start Date End Date Mary Blancas MD [address] [address] PCP - General Internal Medicine 04/20/24
--- OUTSIDE RECORDS SUMMARY | 2024-06-08 14:49 | XMS_ITS | Clinical Summary ---
Author Organization [facility] Care Team Providers Care Realtime Reporter Name Role Phone Unavailable Primary Care Provider [...]
--- OUTSIDE RECORDS SUMMARY | 2024-06-08 14:49 | XMS_ITS | Referral Summary ---
Author Organization [address] Address [facility]4 [place] [address] Care Team Providers Care Sap Manager Name Role Phone Mary Blancas MD Primary Care Provide r Encounters Date Type Department Care Team Description 04/21/2024 Results Follow-Up [facility] [address] [place] [address] 8 [place] [phone] Yeni Rust NP 04/20/2024 12:00 PM CDT Lab [facility] - Lab Collection [address] [facility] Floor 5 [place] [address] Bilateral nipple discharge 04/20/2024 10:45 AM CDT - 04/20/2024 11:59 PM CDT Hospital Encounter [facility] - Breast Imaging [address] [facility] Floor 8 [place] [address] Nipple discharge Discharge Disposition: Discharge to home or self care 04/20/2024 10:00 AM CDT Office [facility] Floor 8 [place] [address] Yeni Rust, DERECK Bilateral nipple discharge (Primary Dx) from Last 3 Months Allergies No known [...] pharyngitis. 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 The patient was advised [...] 6:39 PM CDT): Continue with care per cash posting representative Encounter to establish care 11/16/2019 10/14/2021 Assessment & Plan (11/16/2019 2:43 PM CDT): retrieve records from reimbursement spec, including immunizations Flu vaccine need 11/16/2019 10/14/2021 [...] on file Legal Sex Female 7:17 PM AIR TURNING MACHINE FEEDER Gender Identity Female 04/21/2024 6:21 AM CDT [...] Last 3 Months Results * Thyroid Function [place] (04/20/2024 11:59 AM CDT) TSH 0.98 0.30 - 4.20 mcIUnit/mL Blood 04/20/2024 11:5 9 AM CDT 04/20/2024 12:06 PM CDT us Yeni Rust NP LAB BLOOD ORDERABLES Fi nal Result [facility] One [facility] Department [place] [address] * US Breast Bilateral Limited (04/20/2024 11:35 [...] signed by: Luna Paredes M.D. Yeni Rust CONVEYOR MONITOR IMG MAMMO PROCEDURES Fi nal Result from Last 3 Months Insurance [facility] CHOICE PLUS [facility] HMO/PPO Address: [address] [address] [place] [address] Nitro ACCESS CHOICE Nitro ACCESS CHOICE ACCESS CHOICE Care Teams Sap Manager Relationship Specialty Start Date End Date Mary Blancas MD [address] [address] PCP - General Internal Medicine 04/20/24
--- OUTSIDE RECORDS SUMMARY | 2024-06-08 14:49 | XMS_ITS | Encounter Summary ---
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
--- OUTSIDE RECORDS SUMMARY | 2024-06-08 14:49 | XMS_ITS | Clinical Summary ---
Author Organization [facility] Address [address] [facility] [place] [address] Care Team Providers Care Corporate Bond Trader Name Role Phone Morelia Gaffney PA-C Primary Care Provider + Source Comments [facility],non-owned Affiliates and Associated Physician Practices is amultiple site organization consisting of ambulatory clinics and hospital sitesin [place], [place], [place] and [place]. This disclosure is being madepursuant to the Care Everywhere program and may not contain all information available regarding this patient. Last updated 17.[facility] [employer] Social History Tobacco Use Types Packs/Day Years [...] MEDICAID - OUT OF STATE Care Teams Corporate Bond Trader Relationship Specialty Start Date End Date Morelia Gaffney PA-C PCP - General 12/23/20
[2024-06-08 14:57] LABS: Prothrombin Time 13.9 Seconds (11.1-14.7)
== END 2024-06-08 13:59 | disposition home or self-care (01) ==
LOC: ANHLAB 13:59
PROVIDERS: PCP Family Medicine; Visit Provider Surgery
DX: Z01.812 Encounter for preprocedural laboratory examination (principal); K80.20 Calculus of gallbladder without cholecystitis without obstruction; Z86.2 Personal history of diseases of the blood and blood-forming organs and certain disorders involving the immune mechanism
CPT/HCPCS: 36415; 85027; 85610; 85730

== ENCOUNTER 2024-06-12 00:27 | Day surgery (SDC) | payer BC, SELFPAY ==
--- NOTE | 2024-05-30 09:29 | SUR.PREOP ---
Report to the Outpatient Waiting Room, entrance under the green pavilion located off [facility], at time ___1000___ on date ___06/12/2024____. Planned Procedure Time: ____1200____.? Time changes happen often and if your time is changed the preop area will call you the afternoon before. - You and your visitor will be asked to self-screen and do not enter if you have any COVID symptoms. Please call surgeon if you need to reschedule. - A mask is optional within the hospital at this time. Patients may have clear liquids (water, carbonated beverages, clear teas, apple juice) until 3 hours prior to surgery with a maximum of 20 ounces. - NO CLEAR LIQUIDS AFTER 0900 - No food from midnight until time of surgery and no smoking, or chewing tobacco (or any form of nicotine). No chewing gum, candy or mints. - Infants may have breast milk until 4 hours before surgery, infant formula 6 hours prior to surgery. - Children will be allowed to drink immediately following surgery.? If applicable, please bring a bottle or sippy cup to assist with drinking. Juice, water, soda, and popsicles are readily available.? For infants on formula, please bring formula the day of surgery.? Pacifiers are allowed. Take only the following medications with a SIP of water on the morning of surgery: N/A DO NOT STOP ANY OF YOUR OTHER PRESCRIPTION MEDICATIONS PRIOR TO SURGERY EXCEPT THE FOLLOWING Hold all vitamins and supplements for 3 days per anesthesiologist. Medications to discontinue per physician N/A Date to take last dose Please no make-up, nail central african, hairspray, perfume, deodorant, or body powder the day of surgery.? No jewelry (including any body piercings) or valuables the day of surgery, leave them at home.? Please take a shower or bath the night before, or the morning of, surgery with an antibacterial soap.? Wear comfortable, loose fitting clothing.? Children are encouraged to wear pajamas. - Jewelry must be removed prior to entering the operating room.? Rings and piercings that are not removed may be cut off. - The hospital will not accept responsibility for valuables.? - Please leave all valuables, including medications, at home the day of surgery. If you are going home after surgery, a licensed driver license examiner must drive you home.? - NO public transportation without another adult if you receive anesthesia. - We recommend that an adult stay with you for 24 hours following discharge. - We also recommend that you do not drive, make important decision, drink alcoholic beverages, or take any drugs that were not prescribed by your health care provider for at least 24 hours after your discharge time. For Pediatric surgeries, we recommend two adults accompany the child home. Follow any additional instructions given to you from your surgeon. Telephone instructions given to PRAVIN REYES and asked if any additional questions and then verbalized understanding. Patient advised to call surgeon office or pre surgery nurse liaison [phone] if any additional questions.
[2024-05-30 09:38] VITALS: BMI 28.8
[2024-06-12] VITALS (8 sets, daily range): BP systolic 120–130; BP diastolic 67–84; PULSE 68–87; RESP 16–20; TEMP 36.5–37.1; O2SAT 99–100
--- OUTSIDE RECORDS SUMMARY | 2024-06-12 00:30 | XMS_ITS | Encounter Summary ---
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
--- OUTSIDE RECORDS SUMMARY | 2024-06-12 00:30 | XMS_ITS | Clinical Summary ---
Author Organization [facility] Address [address] [place] [address] Care Team Providers Care Department Traffic Freight Router Name Role Phone Unavailable Primary Care Provider Unavailabl e Encounters Date Type Department Care Team Description 05/29/2024 Hospital Encounter [facility] [place] [address] Merrill Acharya MD from Last 3 Months Social History Tobacco Use Types Packs/Day Years Used Date Smoking Tobacco: Never Assessed Comments Unknown Sex and Gender Information Value Date Recorded Sex Assigned at Not on file Legal Sex Female 9:45 AM LADLE OPERATOR Gender Identity Not on file Sexual [...]
--- OUTSIDE RECORDS SUMMARY | 2024-06-12 00:30 | XMS_ITS | Clinical Summary ---
Author Organization [facility] Care Team Providers Care Clinical Appeals Reviewer Name Role Phone Unavailable Primary Care Provider [...]
--- OUTSIDE RECORDS SUMMARY | 2024-06-12 00:30 | XMS_ITS | Clinical Summary ---
Author Organization [place] [id number] [facility] Address [facility]4 [place] [address] Care Team Providers Care Technical Solutions Director Name Role Phone Mary Blancas MD Primary [...] pharyngitis. Assessment & Plan (04/03/2020 7:51 AM PEER TUTOR): Will send patient to [place] for Covid-19 testing. The patient was advised [...] 6:39 PM CDT): Continue with care per drag car racer Encounter to establish care 11/16/2019 10/14/2021 Assessment & Plan (11/16/2019 2:43 PM CDT): retrieve records from clinical appeals reviewer, including immunizations Flu vaccine need 11/16/2019 10/14/2021 [...] Department Care Team Description 04/21/2024 Results Follow-Up [facility] Surgery [address] [place] [address] 8 [place] [address] Yeni Rust NP 04/20/2024 12:00 PM CDT Lab [facility] - Lab Collection [address] [place] [address] 5 [place] [address] Bilateral nipple discharge 04/20/2024 10:45 AM CDT - 04/20/2024 11:59 PM CDT Hospital Encounter [facility] - Breast Imaging [address] [place] [address] 8 [place] [address] Nipple discharge Discharge Disposition: Discharge to home or self care 04/20/2024 10:00 AM CDT Office Visit [facility] Surgery [facility] Floor 8 [place] [address] Yeni Rust, DERECK Bilateral nipple [...] on file Legal Sex Female 7:17 PM PEER TUTOR Gender Identity Female 04/21/2024 6:21 AM CDT [...] Last 3 Months Results * Thyroid Function [place] (04/20/2024 11:59 AM CDT) TSH 0.98 0.30 - 4.20 mcIUnit/mL Blood 04/20/2024 11:5 9 AM CDT 04/20/2024 12:06 PM CDT us Yeni Rust NP LAB BLOOD ORDERABLES Fi nal Result [facility] One [facility] Department of Laboratories [place], [place] [id number] * US Breast Bilateral Limited (04/20/2024 11:35 [...] from Last 3 Months Insurance CHOICE PLUS [facility] [place] H[place]/PPO Address: [facility] [address] [place] [address] ANTHEM ACCESS CHOICE ANTHEM ACCESS CHOICE ANTHEM ACCESS CHOICE Care Teams Technical Solutions Director Relationship Specialty Start Date End Date Mary Blancas MD [address] [address] PCP - General Internal Medicine 04/20/24
--- OUTSIDE RECORDS SUMMARY | 2024-06-12 00:30 | XMS_ITS | Encounter Summary ---
Author Organization [place] Address [address] [place] [address] Care Team Providers Care Tableau Lead Name Role Phone Unavailable Primary Care Provider Unavailabl e Encounter Details Date Type Department Care Team (Late st Contact Info) Description 05/29/2024 Hospital Encounter 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
--- OUTSIDE RECORDS SUMMARY | 2024-06-12 00:30 | XMS_ITS | Clinical Summary ---
Author Organization [facility] Address [address] [facility] [place] [address] Care Team Providers Care Burrer Marker Axle Name Role Phone Morelia Gaffney PA-C Primary Care Provider + Source Comments [facility],non-owned Affiliates and Associated Physician Practices is amultiple site organization consisting of ambulatory clinics and hospital sitesin [place], [place], [place] and [place]. This disclosure is being madepursuant to the Care Everywhere program and may not contain all information available regarding this patient. Last updated 17.[facility] [employer] Social History Tobacco Use Types Packs/Day Years [...] MEDICAID - OUT OF STATE Care Teams Burrer Marker Axle Relationship Specialty Start Date End Date Morelia Gaffney PA-C PCP - General 12/23/20
--- OUTSIDE RECORDS SUMMARY | 2024-06-12 00:30 | XMS_ITS | Referral Summary ---
Author Organization [address] Address [facility] [place] [address] Care Team Providers Care Front Counter Clerk Name Role Phone Mary Blancas MD Primary Care Provide r Encounters Date Type Department Care Team Description 04/21/2024 Results Follow-Up [facility] Surgery [address] [place] [address] 8 [place] [address] Yeni Rust NP 04/20/2024 12:00 PM CDT Lab [facility] - Lab Collection [address] [facility] Floor 5 [place] [address] Bilateral nipple discharge 04/20/2024 10:45 AM CDT - 04/20/2024 11:59 PM CDT Hospital Encounter [facility] - Breast Imaging [address] [facility] Floor 8 [place] [address] Nipple discharge Discharge Disposition: Discharge to home or self care 04/20/2024 10:00 AM CDT Office Visit [facility] Surgery [facility] Floor 8 [place] [address] Yeni Rust, DERECK Bilateral nipple discharge (Primary [...] pharyngitis. 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 The patient was advised [...] 6:39 PM CDT): Continue with care per data designer Encounter to establish care 11/16/2019 10/14/2021 Assessment & Plan (11/16/2019 2:43 PM CDT): retrieve records from race board attendant, including immunizations Flu vaccine need 11/16/2019 10/14/2021 [...] on file Legal Sex Female 7:17 PM ORNAMENTAL METAL FABRICATOR APPRENTICE Gender Identity Female 04/21/2024 6:21 AM CDT [...] Last 3 Months Results * Thyroid Function [place] (04/20/2024 11:59 AM CDT) TSH 0.98 0.30 - 4.20 mcIUnit/mL Blood 04/20/2024 11:5 9 AM CDT 04/20/2024 12:06 PM CDT us Yeni Rust NP LAB BLOOD ORDERABLES Fi nal Result [facility] One [facility] Department [place] [address] * US Breast Bilateral Limited (04/20/2024 11:35 [...] years of age. Electronically signed by: Luna Pardees M.D. Narrative 04/20/2024 11:45 AM CDT EXAMINATION: [...] signed by: Luna Paredes M.D. Yeni Rust KITCHEN RUNNER IMG MAMMO PROCEDURES Fi nal Result from Last 3 Months Insurance [facility] CHOICE PLUS [email or web address] ACCESS CHOICE [email or web address] ACCESS CHOICE ACCESS CHOICE Care Teams Front Counter Clerk Relationship Specialty Start Date End Date Mary Blancas MD [address] [address] PCP - General Internal Medicine 04/20/24
[2024-06-12] MEDS: ACETAMINOPHEN 500 MG TABLET 1000 MG PO (10:34)
[2024-06-12] MEDS: LACTATED RINGERS 1,000 ML 30 ML IV CONT (10:35)
[2024-06-12] MEDS: KETOROLAC 15 MG/ML VIAL (*BKC) IV PUSH (10:38)
--- NOTE | 2024-06-12 11:02 | WPDHPUPDATE1 ---
History and Physical Update Update Date/Time: 06/12/24 11:02 History and Physical has been reviewed, including an updated exam of the patient. There are NO changes in the patient's condition. Risks, benefits, and alternatives have been discussed and questions answered. Patient agrees to proceed with procedure.
--- NOTE | 2024-06-12 11:03 | P.HP_ITS ---
H&P: HPI History of Present Illness Date/Time: 06/12/24 11:03 Chief Complaint: symptomatic cholelithiasis Narrative: 23 yo woman presents for laparoscopic cholecystectomy. She denies any changes since last seen in office. Review of Systems Review of Systems: All systems reviewed & are unremarkable except as noted in HPI and below Constitutional: Constitutional: Denies chills, Denies fever(s), Denies headache(s) and Denies weight loss Eyes: Eyes: Denies change in vision ENT: Denies dizziness, Denies headache(s), Denies neck mass and Denies throat swelling Cardiovascular: Cardiovascular: Denies chest pain, Denies lightheadedness and Denies dyspnea Respiratory: Respiratory: Denies cough, Denies dyspnea and Denies wheezing Gastrointestinal: Gastrointestinal: Denies abdominal pain, Denies change in bowel habits, Denies nausea and Denies vomiting Genitourinary: Genitourinary: Denies hematuria and Denies dysuria Musculoskeletal: Musculoskeletal: Reports as per HPI Integumentary/Breasts: Skin/Breast: Reports as per HPI Neurologic: Denies dizziness and Denies headache(s) Allergic/Immunologic: Allergic/Immunologic: Denies throat swelling and Denies wheezing [facility] Past Medical History Medical History (Updated 05/08/24 @ 13:58 by Morelia Oliver) Right knee sprain Fracture of scaphoid of right wrist Anxiety Closed right fibular fracture 06/06/21 Obesity (BMI 30-39.9) Intrauterine False labor Decreased movement Depression Surgical History Surgical History (Updated 05/08/24 @ 13:31 by Karina Ricks MA) [place] teeth extracted 2022 No significant past surgical history Family History Family History Grandparent AA (alcohol abuse) Leukemia Depression Heart disease Mother Depression Father Depression Heart disease Hypertension Other Allergies Social History Social History (Updated 05/08/24 @ 13:36 by Karina Ricks MA) Smoking packs per day: 1 Smoking cigarettes per day: 20.0 Years smoked: 3 Smoking pack-years: 3.00 Smoking status: Former smoker Tobacco type: e-cigarettes/vaping Second hand tobacco smoke exposure: Yes Smoking end date: 01/09/24 Alcohol intake: current Alcohol use details: intermittent Substance use: former Substance use type: marijuana Do You Feel Safe in your Home?: Yes Lack of Transportation: No Lack of Food: Never True Current Housing: I Have Housing Concerned About Future Housing: No Difficulty Paying Gas/Electric Bills: No Difficulty Paying for Meds: No Currently Unemployed: No Education: High School Diploma/GED Difficulty w/ Childcare or Family Care: No Living arrangements: with family Additional living arrangements comments: mother, sister, son Occupation/Education: occupation 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[employer], 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; 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 and sick contacts Gender identity (if verbalized by the patient): Female Spiritual care concerns: No Meds Home Medications and Allergies Home Medications ?Medication ?Instructions ?Recorded ?Confirmed ?Type No Home Medications 05/08/24 05/30/24 History Allergies Allergy/AdvReac Type Severity Reaction Status Date / Time No Known Allergies Allergy Unknown Verified 05/30/24 09:39 Exam Const: General: no acute distress and alert Orientation/consciousness: patient oriented x3 HENMT: Head: normocephalic and atraumatic Ears: hearing grossly normal bilaterally Face/Nose/Sinus: Normal nares present Mouth: Yes Normal oral and palatal mucosa present Eyes: Periorbital: periorbital findings normal Sclera: sclerae normal EOM: EOMs intact bilaterally Neck: Neck: normal visual inspection, no lymphadenopathy and trachea midline Chest: Chest palpation & inspection: normal inspection of the chest Resp: Effort & Inspection: normal respiratory effort Auscultation: clear to auscultation bilaterally Cardio: Jugular venous distension: no JVD Rate: regular rate Rhythm: regular rhythm Heart sounds: S1 normal heart sound present and S2 normal heart sound present Peripheral pulses: Peripheral pulses 2+ throughout GI: Inspection: normal to inspection GI Palp: Yes Soft to palpation, No Tenderness to palpation present (GI), No Guarding due to palpation present (GI) and No Rebound tenderness present Percussion: Yes normal to percussion Auscultation: normal bowel sounds : General: Yes no CVA tenderness Back/Spine/Pelvis: Back: no CVA tenderness Neuro: General: patient oriented x3, no focal motor deficits and CN's II-XI intact bilaterally Cognition (Neuro): normal cognition Speech: normal speech Motor exam (neuro): 5/5 motor strength present throughout Extrem: General: capillary refill normal and no clubbing, cyanosis or edema Assessment and Plan Assessment and plan (1) Symptomatic cholelithiasis: Code(s): K80.20 - Calculus of gallbladder without cholecystitis without obstruction Status: Acute Assessment and Plan: I have recommended laparoscopic cholecystectomy, possible open. I have discussed the procedure, risks, benefits, and alternatives with the patient. All questions answered. No changes since last seen in office.
--- NOTE | 2024-06-12 11:43 | WPDANESEPPF ---
Anes - Initial Pre Proc Eval Procedure: Operation Date: 06/12/24 12:00 Proposed Procedures p Laparoscopic Cholecystectomy, Possible Open - Jose Garcia DO Date/Time: 06/12/24 11:43 Surgeon: Jose Garcia DO Pre Op Diagnosis: Symp Cholelithiasis Patient Data Age: 23 Gender: F Height: 1.68 m Weight: 79.2 kg Last Vital Signs Temp 97.7 F 06/12/24 10:10 Pulse 71 06/12/24 10:10 Resp 20 06/12/24 10:10 BP 125/67 06/12/24 10:10 Pulse Ox 100 06/12/24 10:10 O2 Del Method Room Air 06/12/24 10:10 Allergies Allergy/AdvReac Type Severity Reaction Status Date / Time No Known Allergies Allergy Unknown Verified 05/30/24 09:39 Home Medications ?Medication ?Instructions ?Recorded ?Confirmed ?Type No Home Medications 05/08/24 05/30/24 History Patient hx anesthesia problems: none Family hx anesthesia problems: none Results Review: All pre-operative results and documents have been reviewed as part of the pre-operative evaluation. [facility] Past Medical History Medical History Right knee sprain Fracture of scaphoid of right wrist Anxiety Closed right fibular fracture 06/06/21 Obesity (BMI 30-39.9) Intrauterine False labor Decreased movement Depression Surgical History Surgical History Malcom teeth extracted 2022 No significant past surgical history Family History Family History Grandparent AA (alcohol abuse) Leukemia Depression Heart disease Mother Depression Father Depression Heart disease Hypertension Other Allergies Social History Social History (Updated 05/08/24 @ 13:36 by Karina Ricks MA) Smoking packs per day: 1 Smoking cigarettes per day: 20.0 Years smoked: 3 Smoking pack-years: 3.00 Smoking status: Former smoker Tobacco type: e-cigarettes/vaping Second hand tobacco smoke exposure: Yes Smoking end date: 01/09/24 Alcohol intake: current Alcohol use details: intermittent Substance use: former Substance use type: marijuana Do You Feel Safe in your Home?: Yes Lack of Transportation: No Lack of Food: Never True Current Housing: I Have Housing Concerned About Future Housing: No Difficulty Paying Gas/Electric Bills: No Difficulty Paying for Meds: No Currently Unemployed: No Education: High School Diploma/GED Difficulty w/ Childcare or Family Care: No Living arrangements: with family Additional living arrangements comments: mother, sister, son Occupation/Education: occupation 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[employer], 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; 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 BMI 28, pt smokes cannabis 4-5 x weekly. Otherwise good health. Informed Consent: The patient's anesthetic plan and its attendant risks and benefits were discussed with the patient/family/POA. Questions were solicited and answers provided to the satisfaction of the patient/family/POA.
[2024-06-12 11:57] LABS: BEDSIDEPREGUCG Negative (Negative)
[2024-06-12] MEDS: ceFAZolin 2 GM/D5W 50 ML 2 GM/50 ML BAG IVPB (12:15)
[2024-06-12] MEDS: BUPIVACAINE/EPINEPHRINE 0.5% 50 ML VIAL 30 ML INFILTRATE (12:42)
--- NOTE | 2024-06-12 12:51 | W.PM.PROC2 ---
Procedure Note - Detailed Date of Procedure 06/12/24 Pre-op Diagnosis Symptomatic Cholelithiasis Post-op Diagnosis Same Procedure Performed Laparoscopic cholecystectomy Surgeon Jose Garcia, DO Anesthesia General and Local (0.5% bupivacaine) Indications This is a 23-year-old woman who presented with intermittent abdominal pains for the past couple years. Her pain is usually in the right upper quadrant and it usually follows eating heavier or fried foods. She had an outpatient ultrasound which showed evidence of cholelithiasis. Discussions were made with the patient about treatment options and decision was made to proceed with laparoscopic cholecystectomy, possible open. Findings Laparoscopic cholecystectomy was performed. The gallbladder appeared normal in size and had a few pericholecystic adhesions. The cystic duct appeared normal sized. There were multiple small gallstones within the gallbladder. The gallbladder was removed and sent to the lab for pathology. No other intra-abdominal abnormalities were noted. Description of Procedure Procedure as well as risks, benefits, and alternatives were discussed with patient. Written consent was obtained and placed in chart prior to procedure. The patient was brought back to surgical suite. Patient was placed in supine position on operating table. Time-out was done to confirm patient and procedure. Patient was then intubated by the anesthesia department. Abdomen was prepped and draped in sterile fashion using chlorhexidine prep. 0.5% bupivacaine with epinephrine was infiltrated at each site of incision. A 5 millimeter incision was made near the umbilicus, and a 5 millimeter Optiview trocar was advanced through the abdominal layers under direct visualization. Once inside the abdominal cavity, carbon dioxide was insufflated to create a pneumoperitoneum. The camera was inserted and the abdomen was inspected. No immediate abnormalities were identified. The patient was placed in reverse Trendelenburg position and rotated slightly to the left. An 11 millimeter incision was made in the subxiphoid region, and an 11 millimeter trocar was inserted under direct visualization. Two 5 millimeter incisions were made in the right upper quadrant, and two 5 millimeter trocars were inserted under direct visualization. The gallbladder was identified and grasped at the fundus and retracted superiorly. It was then grasped at the infundibulum retracted laterally. Careful dissection around the neck of the gallbladder was performed using blunt dissection with a [place] grasper and hook electrocautery. The cystic duct was identified, and a window was created behind it. The cystic artery was also identified and a window was created behind it. The critical view of safety was identified, visualizing the cystic duct running directly into the neck of the gallbladder, and the cystic artery running directly into the wall of the gallbladder. A 5 millimeter clip media relations intern was then used to place 2 clips proximally and 1 clip distally on both the cystic duct and cystic artery. They were then both transected using endoscopic scissors. Once safely away from the radha hepatitis, the gallbladder was dissected free from the liver bed using hook electrocautery. Hemostasis was achieved along the way. The gallbladder was removed completely and then removed through the subxiphoid port. The liver bed was then inspected. Hemostasis appeared adequate, and our clips appeared secure. The area was gently irrigated with sterile saline. No other abnormalities were seen. The patient was flattened out in bed, and 1 final inspection was made around the abdominal cavity. The subxiphoid port was removed, and a Maxi Kathy cone was used to approximate the fascia with an 0-Vicryl simple interrupted suture. The remaining ports were then removed under direct visualization, the camera was removed, and the pneumoperitoneum was released. The skin of the incisions was approximated using 4-0 Monocryl subcuticular sutures. Exofin glue was applied on top. The patient was then awakened from anesthesia, extubated, and transferred to recovery. Estimated Blood Loss 5 Pathology Yes (Gallbladder) Complications No immediate complications Condition Stable Disposition Same day [facility] Billing Surgery - Charge Forward: Surgery Billing
[2024-06-12] MEDS: fentaNYL CITRATE INJ (*CRX) 100 MCG/2 ML VIAL 25 MCG IV PUSH ×2 (13:42→13:46)
[2024-06-12] MEDS: oxyCODONE HCL (*CRX) 5 MG TAB IR PO (14:15)
== END 2024-06-12 14:57 | disposition home or self-care (01) ==
PROVIDERS: PCP Family Medicine; Visit Provider Surgery
PROC: 0FT44ZZ Resection of Gallbladder, Percutaneous Endoscopic Approach (ICD-10-PCS; CPT 47562; principal; 2024-06-12 12:00)
DX: K80.20 Calculus of gallbladder without cholecystitis without obstruction (principal); K82.8 Other specified diseases of gallbladder; F41.9 Anxiety disorder, unspecified; F32.A Depression, unspecified; F12.90 Cannabis use, unspecified, uncomplicated; Z98.890 Other specified postprocedural states; Z87.891 Personal history of nicotine dependence; Z80.6 Family history of leukemia; Z82.49 Family history of ischemic heart disease and other diseases of the circulatory system
CPT/HCPCS: 47562; 88304; A9270; J0690; J1100; J1885; J2003; J2250; J2405; J2704; J3010; J7030; J7120

== ENCOUNTER 2024-10-12 10:02 | Outpatient (CLI) | payer BC, SELFPAY ==
--- NOTE | ~2024-10-12 | US_ITS ---
EXAMINATION: US transvaginal INDICATION: Right lower quadrant pain Comparison:No prior studies for comparison. TECHNIQUE: Multiple transabdominal and endovaginal sonographic images of the pelvis performed. FINDINGS: The uterus measures 5.7 x 3.7 x 4.8 cm. The endometrial complex measures 2 mm. The right ovary measures 2.8 x 2.3 x 2.7 cm and the left ovary measures . There are small follicles in each ovary. Normal doppler signal in both ovaries. There is no free fluid in the pelvis. There are no abnormal masses seen on either side. IMPRESSION: 1. Normal pelvic ultrasound. 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
== END 2024-10-12 10:03 | disposition home or self-care (01) ==
PROVIDERS: PCP Obstetrics & Gynecology Gynecology; Visit Provider Obstetrics & Gynecology Gynecology
DX: R10.2 Pelvic and perineal pain (principal)
CPT/HCPCS: 76830

== ENCOUNTER 2025-01-15 14:29 | Outpatient (CLI) | payer BC, SELFPAY ==
--- NOTE | ~2025-01-15 | US_ITS ---
EXAM/PROCEDURE: US OB transvaginal HISTORY: spotting first trimester, pelvic pain COMPARISON: None available. TECHNIQUE: Directed evaluation for viability and dates LMP: September 20, 2025 FINDINGS: The uterus measures 6.8 x 4.6 x 5.2 cm and appears normal. Endometrial stripe: 15.2 mm No intrauterine gestation or evidence of gestational sac identified. Right ovary: 3.4 x 2.9 x 3.3 cm Left ovary: 1.4 x 2.1 x 1.9 cm Both ovaries appear normal in echotexture and vascular flow. A small amount of free fluid noted. IMPRESSION: 1. No intrauterine gestation identified. Correlate with quantitative hCG levels and short interval follow-up confirmatory ultrasound as clinically appropriate. 2. Thickened endometrial stripe which is normal in the secretory phase of a woman's cycle, however given dates provided, patient's menstrual cycle is unclear. Correlate with menstrual history and follow-up pelvic ultrasound or [employer] consultation. Reviewed, dictated and finalized at location A. 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 No intrauterine gestation identified. Correlate with quantitative hCG levels and short interval follow-up confirmatory ultrasound as clinically appropriate . 2. Thickened endometrial stripe which is normal in the secretory phase of a wom an's cycle, however given dates provided, patient's menstrual cycle is unclear. Correlate with menstrual history and follow-up pelvic ultrasound or [employer] consul tation.
== END 2025-01-15 14:30 | disposition home or self-care (01) ==
LOC: MICIMG 14:30
PROVIDERS: PCP Obstetrics & Gynecology Gynecology; Visit Provider Obstetrics & Gynecology Gynecology
DX: O26.851 Spotting complicating pregnancy, first trimester (principal); Z3A.00 Weeks of gestation of pregnancy not specified
CPT/HCPCS: 76817

== ENCOUNTER 2025-01-17 13:16 | Outpatient (CLI) | payer BC, SELFPAY | END 2025-01-17 13:17 | disposition home or self-care (01) | PROVIDERS: Visit Provider Obstetrics & Gynecology Gynecology | DX: O26.851 Spotting complicating pregnancy, first trimester (principal); Z3A.00 Weeks of gestation of pregnancy not specified | CPT/HCPCS: 36415; 84702 ==

== ENCOUNTER 2025-01-30 13:40 | Outpatient (CLI) | payer BC, SELFPAY ==
--- NOTE | ~2025-01-30 | US_ITS ---
EXAMINATION: US OB transvaginal DATE: 01/30/2025 14:15 INDICATION: Spotting first trimester . 3 days prior. TECHNIQUE: Real-time transabdominal and transvaginal obstetric ultrasound. FINDINGS: No prior studies for comparison. The uterus measures 11.3 x 5.7 x 5.7 cm. There is an intrauterine gestational sac, with pole identified. The crown rump length measures 0.26 cm, which correlates with a estimated gestational age of 5 weeks 6 days. heart rate 101 BPM. There is trace fluid in the pelvis. IMPRESSION: 1. SL IUP with an EGA of 5 weeks, 6 days (EDC by current ultrasound of 09/26/2025). 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 SL IUP with an EGA of 5 weeks, 6 days (EDC by current ultrasound of ).
== END 2025-01-30 13:41 | disposition home or self-care (01) ==
LOC: MICIMG 13:42
PROVIDERS: PCP Obstetrics & Gynecology Gynecology; Visit Provider Obstetrics & Gynecology Gynecology
DX: O26.859 Spotting complicating pregnancy, unspecified trimester (principal); Z3A.00 Weeks of gestation of pregnancy not specified
CPT/HCPCS: 76817